=== PATIENT | male | born 1945 | race American Indian/Alaskan Native ===

== ENCOUNTER 2021-06-06 11:21 | Outpatient (CLI) | payer OTHER ==
--- NOTE | 2021-06-06 13:23 | Ultrasound Report ---
US pelvic complete INDICATION / CLINICAL INFORMATION: LEFT INGUINAL HERNIA. COMPARISON: None available. FINDINGS: Limited grayscale imaging of the left groin area of concern. There is a bowel containing hernia noted within the left groin. Peristalsis is identified. A small am ount of associated fluid is visualized. No evidence of hernia extending into left scrotum. IMPRESSION: 1. Bowel containing left inguinal hernia. If there is concern for obstruction or strangulation, consi madhavi further evaluation with CT. Scribed by: Altagracia Blancas RDMS, RVT Scribed: 06/06/2021 11:47 AM I have reviewed the images, agree with this report, and edited this report as needed. Signer Name: Davy Shaver MD Signed: 06/06/2021 1:19 PM Workstation Name: [id number]
== END 2021-06-06 11:22 | disposition home or self-care (01) ==
LOC: US 11:21
PROVIDERS: ATTEND Internal Medicine
DX: K40.90 Unilateral inguinal hernia, without obstruction or gangrene, not specified as recurrent (principal)